=== PATIENT | male | born 1990 | race Caucasian/White ===

== ENCOUNTER 2023-06-05 12:17 | Outpatient (AMB) | payer BC, SELFPAY ==
--- NOTE | 2023-06-05 12:20 | A.OFFPC_ITS ---
Vital Signs 06/05/23 12:28 Height 5 ft 5 in Weight 154 lb 8 oz BMI 25.7 BP 100/62 Blood Pressure Location Lt brachial Position Sitting Pulse 51 Pulse Source Pulse Oximeter Pulse Oximetry (%) 98 Oxygen Delivery Method Room Air Intake Visit Reasons: LAST PULLER/ Liver/Breathing Intake Note: Patient is a new patient here to establish care for Depression, Anxiety, ADHD . Transferring care from unknown. Medical records have not been requested and have not received. Learn To Swim Instructor Required: No Director Of Pediatric Rehabilitation: Not Required per policy Accompanied by: Self / Same As Patient Allergies No Known Allergies Allergy (Verified 06/05/23 12:33) Medication List - Last Reconciled 06/05/23 by WINTER Jones- No Known Home Meds Tobacco use date assessed: 06/05/23 Dental Screening Dental Screen Date: 06/05/23 Did you have a dental visit in the last 12 months?: No Did you have a dental problem in the last 6 months where you did not have access to dental care?: No Was dental information given to patient?: No HPI HPI Comments History of Present Illness Details 32 y/o M MDD, ADHD, polysubstance abuse, Hep C s/p Mounika Reports he was put up for adoption 1993. He was adopted by a nice family in [facility]. His mom is a retired nurse. He comes to me today with no records. He reports Recent PCP 6-7 years ago at [facility] Was living in [place] for the last 2-3 years. Limited medical care Was in detox rehab heroin/cocaine Clean September 19 2017 from heroin; but then quickly started using cocaine. smoking cocaine last use a few months ago. Was on MAT w/ subaxone for 3 years. Hospital stays: [facility] 2017 for overdose Admitted x3 for overdose In out of detox and rehab several times Here today looking to get caught up on his health care. Would like Echo to check his heart w/ Cocaine use Wants meds from ADHD if able. Was Adderall in the past. Mentions perhaps Strattera when he was a child but unsure. Again no records. He reports that he awoke get me some records to review. Admits depressive symptoms he does see a counselor once a week, described as more as a drop in somewhere in [place]. Admits that he would benefit from therapy on a more consistent basis. [facility] Medical History Palpitation Liver disease Anxiety and depression ADHD History of drug dependence/abuse Surgical History No pertinent past surgical history Family History Mother Mental health disorder High blood pressure High cholesterol Alcoholism Father Substance use disorder High blood pressure High cholesterol Alcoholism Social History Housing: Other (fpc ) Alcohol intake: former Patient Tobacco Use Status: Never used Tobacco Tobacco use type: Smokeless Tobacco (nicotine patches) e-Cigarette/Vaping Use: Currently Using (mariarjuna) Second Hand Smoke Exposure: Yes Substance Use Type: Marijuana service: No Current occupational status: employed 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 1. Little interest or pleasure in doing things: more than half the days 2. Feeling down, depressed, or hopeless: more than half the days 3. Trouble falling or staying asleep, or sleeping too much: not at all 4. Feeling tired or having little energy: several days 5. Poor appetite or overeating: several days 6. Feeling bad about yourself - or that you are a failure or have let yourself or your family down: several days 7. Trouble concentrating on things, such as reading the newspaper or watching television: several days (trouble concentrating ) 8. Moving or speaking so slowly that other people could have noticed. Or the opposite - being so fidgety or restless that you have been moving around a lot more than usual: not at all 9. Thoughts that you would be better off or of hurting yourself in some way: not at all Total score: 8 Depression Screening Interpretation: Positive Depression Screening Follow-up: Existing condition Depression Screening Done: Yes 27451 - PHQ-9 Billing: Yes Source: Developed by Alesha Cruz Kareem, Froilan Hardin and colleagues, with an educational joyce from [employer]. Thrive Questionnaire Date Thrive assessed: 06/05/23 I am a: Patient What is your living situation today?: I have a place to live, but I am worried about losing it in the future Within the past 12 months, did the food you bought not last and you didn't have the money to get more?: Never true Within the past 12 months, did you worry whether your food would run out before you got money to buy more?: Never true Do you have trouble paying for medicines?: No Do you have trouble getting transportation to medical appointments?: No Do you have trouble paying your heating and electricity bill?: No Do you have trouble taking care of your child, family member or friend?: No Do you have trouble with day-to-day activities such as bathing, preparing meals, shopping, managing finances, etc.?: No Are you currently unemployed and looking for a job?: No Are you interested in more education?: No Please select the resources that you would like help with: None Currently or been in a relationship where the following occur: no concerns reported THRIVE Score: 1 AUDIT C Alcohol Use Questionnaire (AUDIT-C) 1. How often do you have a drink containing alcohol?: Never 2. How many drinks containing alcohol do you have on a typical day when you are drinking?: 1 or 2 3. How often do you have six or more drinks on one occasion?: Never Total Score: 0 Score Reviewed/Action Taken: Yes KRISTOFER-7 AMB Questionnaire KRISTOFER-7 Date KRISTOFER - 7 assessed: 06/05/23 Feeling nervous, anxious, or on edge: 3 = Nearly every day Not being able to stop or control worryin = Nearly every day Worrying too much about different things: 3 = Nearly every day Trouble relaxin = Nearly every day Being so restless that it is hard to sit still: 3 = Nearly every day Becoming easily annoyed or irritable: 3 = Nearly every day Feeling afraid as if something awful might happen: 3 = Nearly every day Total KRISTOFER-7 score (0-4 normal; 5-9 mild; 10-14 moderate; 15-21 severe): 21 Source: Developed by Drs. Eros L. KristinAlesha sanchez, Froilan Hardin and colleagues, with an educational joyce from [employer]. KRISTOFER-7 Assessment Billing KRISTOFER-7 Assessment Tool: KRISTOFER-7 Assessment 84263 Review of Systems Const All systems reviewed & are unremarkable except as noted in HPI and below Physical exam (Primary Care) Vital Signs: Last Vital Signs Pulse 51 06/05/23 12:28 BP 100/62 06/05/23 12:28 Pulse Ox 98 06/05/23 12:28 Oxygen Delivery Method Room Air 06/05/23 12:28 BMI result Body Mass Index 25.7 Tobacco/Smoking Status: Tobacco use Status Tobacco use date assessed 06/05/23 06/05/23 12:51 Patient Tobacco Use Status Never used Tobacco 06/05/23 12:51 Tobacco use type Smokeless Tobacco (nicotine 06/05/23 12:51 patches) e-Cigarette/Vaping Use Currently Using (mariarjuna) 06/05/23 12:51 PHQ-9: PHQ-9 Score PHQ-9: Total score 8 06/05/23 13:33 Depression Screening Interpretation: Positive Depression Screening Follow-up: Ex isting condition Thrive Assessment: Date of Thrive Assessment Date Thrive assessed 06/05/23 06/05/23 12:51 Currently or been in a relationship where the following occur: no concerns reported Const Other: Awake alert oriented no acute distress PERRLA, sclera nonicteric Mucous membranes moist Regular rate and rhythm Lung sounds with coarse inspiratory expiratory rhonchi bilat Mood and affect appropriate Office Procedures Flu Questionnaire Does the patient have a severe egg allergy?: No Does the patient have severe life threatening allergies?: No Does the patient have a fever or illness today?: No Has the patient ever had Guillain-Tiger Syndrome?: No Has the patient ever had any past reaction to a flu shot?: No Immunizations flu vacc [id number] 6mos up(PF) 60 mcg(15 mcgx4)/0.5 mL IM syringe Performing Provider: CRISTOBAL Jones Performing Location: [facility] Administered by: Fiona Metzger CMA on 06/05/23 13:33 Dose Route Admin Location Dispensed Lot Number Expiration Date NDC [facility] Of Hospital Medicine 0.5 mL IM Left Deltoid 0.5 mL [id number] 10/18/23 30984-937-73 [employer] VIS Given Date VIS Provided VIS Publication Date 06/05/23 Single Vaccine 20 Eligibility Eligibility Date Funding Source Not [facility] [facility] Eligible 06/05/23 Private Assessment and Plan Assessment & Plan (1) History of intravenous drug abuse: Comment: No IV drug use since September 2017 after his last overdose. Was treated with Suboxone at this time. Currently not on any MAT. We will order an echocardiogram Code(s): Z87.898 - Personal history of other specified conditions (2) Cocaine use disorder: Comment: Smokes cocaine. Last use a few months ago. Abnormal lung sounds today. We will check PFTs and bring him back to follow up on these results Code(s): F14.10 - Cocaine abuse, uncomplicated (3) KRISTOFER (generalized anxiety disorder): Comment: Not currently on medication. I have referred him to the nurse navigator to help him establish care with a trauma and forearm therapist. Time spent reviewing this in the trauma associated with adoption. Code(s): F41.1 - Generalized anxiety disorder (4) MDD (major depressive disorder): Comment: Not currently on medication. I have referred him to the nurse navigator to help him establish care with a trauma and forearm therapist. Time spent reviewing this in the trauma associated with adoption. Likely will benefit from some medication we will check some labs 1st and bring him back to follow-up and discuss this Code(s): F32.9 - Major depressive disorder, single episode, unspecified Qualifiers: Major depression recurrence: recurrent Active/Remission status: currently active Major depression episode severity: moderate Qualified Code(s): F33.1 - Major depressive disorder, recurrent, moderate (5) ADHD: Comment: Was on Adderall in the past. Discussed the use of stimulants in the setting of polysubstance abuse. Strongly advised against this. We will check some labs and bring him back to discuss further treatment. He was made aware that there are other treatment alternatives that are not stimulants. Code(s): F90.9 - Attention-deficit hyperactivity disorder, unspecified type Qualifiers: Attention deficit-hyperactivity disorder type: combined inattentive- hyperactive Qualified Code(s): F90.2 - Attention-deficit hyperactivity disorder, combined type Plan Total time spent caring for the patient today was 60 minutes. This includes time spent before the visit reviewing the chart, time spent during the visit, and time spent after the visit on documentation This note is constructed using voice recognition software. While every effort has been made to ensure accuracy in automation application engineer, still errors may have been included Sometimes, these errors may affect the content or meaning of the given sentence . Orders: Orders CA echo transthorac w con Today TSH reflex Free T4 Today F14.10 - Cocaine abuse, uncomplicated, F32.9 - Major depressive disorder, single episode, unspecified, F41.1 - Generalized anxiety disorder, F90.9 - Attention-deficit hyperactivity disorder, unspecified type, Z87.898 - Personal history of other specified conditions HIV Ab/Ag Today F14.10 - Cocaine abuse, uncomplicated, F32.9 - Major depressive disorder, single episode, unspecified, F41.1 - Generalized anxiety disorder, F90.9 - Attention-deficit hyperactivity disorder, unspecified type, Z87.898 - Personal history of other specified conditions Syphilis Screen Today F14.10 - Cocaine abuse, uncomplicated, F32.9 - Major depressive disorder, single episode, unspecified, F41.1 - Generalized anxiety disorder, F90.9 - Attention-deficit hyperactivity disorder, unspecified type, Z87.898 - Personal history of other specified conditions PFT pulmonary function test Today F14.10 - Cocaine abuse, uncomplicated, F32.9 - Major depressive disorder, single episode, unspecified, F41.1 - Generalized anxiety disorder, F90.9 - Attention-deficit hyperactivity disorder, unspecified type, Z87.898 - Personal history of other specified conditions Influenza [id number] Immunization Today Z23 - Encounter for immunization Comprehensive Met. Panel Today F14.10 - Cocaine abuse, uncomplicated, F32.9 - Major depressive disorder, single episode, unspecified, F41.1 - Generalized anxiety disorder, F90.9 - Attention-deficit hyperactivity disorder, unspecified type, Z87.898 - Personal history of other specified conditions Microalbumin, Random (w Creat) Today F14.10 - Cocaine abuse, uncomplicated, F32.9 - Major depressive disorder, single episode, unspecified, F41.1 - Generalized anxiety disorder, F90.9 - Attention-deficit hyperactivity disorder, unspecified type, Z87.898 - Personal history of other specified conditions Herpes Simplex Virus Ab IgG Today F14.10 - Cocaine abuse, uncomplicated, F32.9 - Major depressive disorder, single episode, unspecified, F41.1 - Generalized anxiety disorder, F90.9 - Attention-deficit hyperactivity disorder, unspecified type, Z87.898 - Personal history of other specified conditions Hepatitis A,B,C Profile Today F14.10 - Cocaine abuse, uncomplicated, F32.9 - Major depressive disorder, single episode, unspecified, F41.1 - Generalized anxiety disorder, F90.9 - Attention-deficit hyperactivity disorder, unspecified type, Z87.898 - Personal history of other specified conditions Referrals Nurse Navigator Referral F32.9 - Major depressive disorder, single episode, unspecified, F41.1 - Generalized anxiety disorder, Z87.898 - Personal history of other specified conditions Coding Level of Care Code New Pt Level 5 (35315) Diagnoses History of intravenous drug abuse Z87.898 Cocaine use disorder F14.10 KRISTOFER (generalized anxiety disorder) F41.1 Moderate episode of recurrent major depressive disorder F33.1 Major depression recurrence: recurrent Active/Remission status: currently active Major depression episode severity: moderate Attention deficit hyperactivity disorder (ADHD), combined type F90.2 Attention deficit-hyperactivity disorder type: combined inattentive- hyperactive Additional Codes KRISTOFER-7 Assessment Billing - KRISTOFER-7 Assessment Tool: KRISTOFER-7 Assessment 33516 ([id number])
[2023-06-05 12:28] VITALS: BP 100/62; PULSE 51; O2SAT 98; BMI 25.7
== END 2023-06-05 14:21 | disposition home or self-care (01) ==
PROVIDERS: PCP Nurse Practitioner Family; Visit Provider Nurse Practitioner Family
DX: F33.1 Major depressive disorder, recurrent, moderate (principal); F14.10 Cocaine abuse, uncomplicated; F90.2 Attention-deficit hyperactivity disorder, combined type; Z23 Encounter for immunization; Z87.898 Personal history of other specified conditions; F41.1 Generalized anxiety disorder
CPT/HCPCS: 90471; 90686; 96127; 99205

== ENCOUNTER → 2023-07-03 08:40 | Outpatient (REF) | payer BC, SELFPAY ==
--- NOTE | 2023-07-03 08:54 | CA_ITS ---
Transthoracic Echocardiogram Patient (Last, First, Middle): Jaya Carrillo, Gender: Male Date of : 1990 Age: 32 Procedure Date: 07/03/2023 Procedure Type: Transthoracic Echocardiogram Location: OP Height: 165.1 cm Weight: 65.77 kg BSA: 1.73 m2 Heart Rate: 51 bpm BP: 110 / 70 mmHg Farm Appraiser: TO Referring MD: Zoë Massey [facility]- Forensic Pathologist: Christiano Lazcano MD Symptoms: Z87.898 - Personal history of other specified conditions Study Quality: Good ECG Rhythm: Bradycardia Conclusions: - Normal study Findings Left Ventricle Normal left ventricular size, thickness, and systolic function. The visually estimated ejection fraction is between 60-65 Peak GLS is -19.8%, within normal limits. Right Ventricle Normal right ventricular cavity size and systolic function. Atria Both atria are normal in size. There is no evidence of interatrial shunt. Aortic Valve Normal aortic valve structure and function. There is no aortic valve stenosis. There is no aortic valve regurgitation. Mitral Valve Normal mitral valve structure and function. There is no mitral valve regurgitation. There is no mitral valve stenosis. Pulmonic Valve The pulmonic valve is normal. Tricuspid Valve Normal tricuspid valve structure. There is trace tricuspid valve regurgitation. The right ventricular systolic pressure is normal. The right ventricular systolic pressure is 20 mmHg. Normal right atrial pressure. There is no evidence of pulmonary hypertension. Great Vessels All visible segments of the aorta are normal in size. The visualized portions of the pulmonary artery and branches are normal. Venous The inferior vena cava is normal in size and collapses greater than 50% with inspiration. Pericardium/Pleural There is no evidence of pericardial effusion. Prior Study Comparison No prior study available for comparison. Measurements 2D Linear Measurements IVSd: 0.98 0.6-0.9/0.6-1.0 cm LVIDd: 4.89 3.9-5.3/4.2-5.9 cm LVIDd Index: 2.83 2.4-3.2/2.2-3.1 cm/m2 LVIDs: 3.04 2.0-3.6 cm LVPWd: 0.98 0.7-1.1 cm LA Diam: 3.50 2.7-3.8/3.0-4.0 cm LAIDs Index: 2.02 1.5-2.3 cm/m2 LV Mass: 212.38 67-162/88-224 g LV Mass Index: 122.76 43-95/49-115 g/m2 LVOT Diam: 2.10 3.0+(-)1.3 cm 2D Systolic Function EF 4C: 64.60 >55% EF 2C: 59.90 >55% EF BiP: 61.00 >55% Mitral Valve MV Pk E: 0.68 MV PK A: 0.25 MV Decel Time: 251.00 E/A: 2.70 E'Lateral: 15.00 E'Medial: 11.40 E/E' Med: 6.00 E/E' Lat: 4.50 PHT: 74.00 MVA PHT: 2.97 Decel [place]: 2.71 Aortic Valve AoV Pk Sergio: 1.03 AoV Mn Sergio: 0.83 AoV VTI: 0.29 AoV Pk Grad: 4.00 Aov Mn Grad: 3.00 KORY Cont.VTI: 2.53 LVOT LVOT Pk Sergio: 0.80 LVOT Mn Sergio: 0.52 LVOT VTI: 0.21 LVOT Pk Grad: 3.00 LVOT Mn Grad: 1.00 LVOT Diam: 2.10 LVOT Area: 3.46 Diastolic Function MV Pk E: 0.68 MV Pk A: 0.25 E/A: 2.70 E'Medial: 11.40 E/E' Med: 6.00 E' Laterial: 15.00 E/E' Lat: 4.50 Right Ventricle TAPSE (mm): 24.90 TVS' Sergio: 11.70 Tricuspid Valve TR Pk Sergio: 1.74 TR Pk Grad: 12.00 RA Press: 8.00 RVSP: 20.00 Great Vessels Aorta Sinus of Valsalva: 3.00 2.0-3.5 cm Ao Asc: 2.80 2.1-3.4 cm Updated in Other Vendor System with Status of Final Christiano Lazcano MD electronically signed on 07/03/2023 4:56:57 PM with status of Final
== END ==
LOC: HO.CARD 08:40
PROVIDERS: PCP Nurse Practitioner Family; Visit Provider Nurse Practitioner Family
DX: F14.10 Cocaine abuse, uncomplicated (principal); Z87.898 Personal history of other specified conditions
CPT/HCPCS: 93306; 93356

== ENCOUNTER → 2023-07-03 08:54 | Outpatient (BNV) | payer BC, SELFPAY | PROVIDERS: PCP Nurse Practitioner Family; Visit Provider Internal Medicine Cardiovascular Disease | DX: R00.1 Bradycardia, unspecified (principal) | CPT/HCPCS: 93306 ==

== ENCOUNTER 2023-09-21 08:54 | Outpatient (AMB) | payer BC, SELFPAY ==
--- NOTE | 2023-09-21 08:57 | A.OFFVIS_ITS ---
Vital Signs 09/21/23 08:59 Height 5 ft 5 in Weight 149 lb 2 oz BMI 24.8 BP 128/64 Blood Pressure Location Rt brachial Position Sitting Respiration 14 Pulse 62 Pulse Source Pulse Oximeter Temp 97.9 F Intake Visit Reasons: Discuss next steps and mental health referral Intake Note: F/U on mental health referral. Allergies No Known Allergies Allergy (Verified 09/21/23 09:16) Medication List - Last Reconciled 09/21/23 by CRISTOBAL Jones No Known Home Meds HPI Comments Details: 32 y/o M MDD, ADHD, polysubstance abuse, Hep C s/p Mounika Reports he was put up for adoption 1993. He was adopted by a nice family in [facility]. His mom is a retired nurse. Hospital stays: [facility] 2017 for overdose Admitted x3 for overdose In out of detox and rehab several times Here today to routine f/u Interested in getting ADHD meds; was on adderral and straterra in the past; need to avoid stims and other addictive meds given hx. Prior to start needs labs done ordered at last visit but not done Will get labs done today Active w/ therapist at [facility]'s office > did not f/u on NN referral. No interest Denies any use of cocaine since last visit No etoh - 12 months No smoking - 8 months 06/2023 echo WNL - reviewed w/ him today PFTs ordered but not complete- would need to get done at outside facility. Does not wish to f/u on this at this time, feels his breathing is fine insomnia, sleep maintenance, falls asleep fine, wakes at 0500 QD. Wonders about melatonin or OTC sleep aide Plan: Start Wellbutrin XL 150mg po QD - goal to treat KRISTOFER/MDD and ADHD w/one medication and avoid polypharm w him Start traz 25-50mg po QHS PRN - to help w/insomnia and mood; if in effective could increase to switch to visatril. RTO 6 weeks to fu on medications & effect. Sooner as needed PFSH Medical History (Updated 09/21/23 @ 12:46 by CRISTOBAL Jones) Palpitation Liver disease Anxiety and depression ADHD History of drug dependence/abuse Surgical History No pertinent past surgical history Family History Mother Mental health disorder High blood pressure High cholesterol Alcoholism Father Substance use disorder High blood pressure High cholesterol Alcoholism Social History Housing: Other (fpc ) Alcohol intake: former Patient Tobacco Use Status: Never used Tobacco Tobacco use type: Smokeless Tobacco (nicotine patches) e-Cigarette/Vaping Use: Currently Using (mariarjuna) Second Hand Smoke Exposure: Yes Substance Use Type: Marijuana service: No Current occupational status: employed 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 Cognitive needs: No Hearing needs: No Vision needs: No Review of Systems Const All systems reviewed & are unremarkable except as noted in HPI and below Physical Exam Vital Signs: Last Vital Signs Temp 97.9 F 09/21/23 08:59 Pulse 62 09/21/23 08:59 Resp 14 09/21/23 08:59 BP 128/64 09/21/23 08:59 BMI result Body Mass Index 24.8 Const Other: awake alert NAD scleras nonicteric bilat RRR LS with ins/exp wheezes BLL cleared w/ deep breaths, otherwise clear throughout Mood and affect appropriate Assessment & Plan Assessment & Plan (1) MDD (major depressive disorder): Comment: Not currently on medication. Active w/ counselor for 's Dept - declines NN referral at this time Start wellbutrin XL 150mg po QD Code(s): F32.9 - Major depressive disorder, single episode, unspecified Category: Medical Qualifiers: Active/Remission status: currently active Major depression episode severity: moderate Major depression recurrence: recurrent Qualified Code(s): F33.1 - Major depressive disorder, recurrent, moderate (2) KRISTOFER (generalized anxiety disorder): Comment: see MDD Code(s): F41.1 - Generalized anxiety disorder Category: Medical (3) ADHD: Comment: Was on Adderall in the past. Discussed the use of stimulants in the setting of polysubstance abuse. Strongly advised against this. Start wellbutrin xl 150mg po Qd Code(s): F90.9 - Attention-deficit hyperactivity disorder, unspecified type Category: Medical Qualifiers: Attention deficit-hyperactivity disorder type: combined inattentive- hyperactive Qualified Code(s): F90.2 - Attention-deficit hyperactivity disorder, combined type (4) Mood insomnia: Comment: start traz 25-50mg po QHS PRN Code(s): F51.05 - Insomnia due to other mental disorder; F39 - Unspecified mood [affective] disorder Category: Medical (5) History of drug dependence/abuse: Comment: in remission, not on MAT Code(s): F19.21 - Other psychoactive substance dependence, in remission Category: Medical Plan This note is constructed using voice recognition software. While every effort has been made to ensure accuracy in municipal services manager, still errors may have been included Sometimes, these errors may affect the content or meaning of the given sentence . Total time spent caring for the patient today was 50 minutes. This includes time spent before the visit reviewing the chart, time spent during the visit, and time spent after the visit on documentation Medications: New trazodone 1/2 to 1 tab needed insomnia 50 mg PO BEDTIME PRN 30 tabs 1RF sleep bupropion HCl XL (Wellbutrin XL) 150 mg PO QAM 30 tabs 1RF Patient Instructions: get labs done today --> labs done and normal CMP, TSH RTO in 6 weeks to fu on medications Coding Level of Care Code Est Pt Level 5 (63055) Diagnoses Moderate episode of recurrent major depressive disorder F33.1 Active/Remission status: currently active Major depression episode severity: moderate Major depression recurrence: recurrent KRISTOFER (generalized anxiety disorder) F41.1 Attention deficit hyperactivity disorder (ADHD), combined type F90.2 Attention deficit-hyperactivity disorder type: combined inattentive- hyperactive Mood insomnia F51.05; F39 History of drug dependence/abuse F19.21
[2023-09-21 08:59] VITALS: BP 128/64; PULSE 62; RESP 14; TEMP 36.6; BMI 24.8
== END 2023-09-21 10:49 | disposition home or self-care (01) ==
PROVIDERS: PCP Nurse Practitioner Family; Visit Provider Nurse Practitioner Family
DX: F33.1 Major depressive disorder, recurrent, moderate (principal); F39 Unspecified mood [affective] disorder; F19.21 Other psychoactive substance dependence, in remission; F41.1 Generalized anxiety disorder; F90.2 Attention-deficit hyperactivity disorder, combined type; F51.05 Insomnia due to other mental disorder
CPT/HCPCS: 99215

== ENCOUNTER 2023-09-21 09:36 | Outpatient (REF) | payer BC, SELFPAY ==
[2023-09-21 12:17] LABS: Alanine Aminotransferase 14 U/L (0-40); Albumin Level 4.6 g/dL (3.5-5.0); Alkaline Phosphatase 70 U/L (39-117); Anion Gap 11 (12-20); Aspartate Amino Transferase 19 U/L (5-37); Bilirubin Total 0.5 mg/dL (0.0-1.0); Blood Urea Nitrogen 17 mg/dL (9-16); Calcium 9.9 mg/dL (8.4-10.2); Carbon Dioxide 27 mmol/L (22-29); Chloride 106 mmol/L (96-108); Estimated Glomerular Filt Rate > 60; Glucose Random 94 mg/dL (60-115); Potassium 4.2 mmol/L (3.3-5.1); Sodium 140 mmol/L (135-145); Total Protein 7.4 g/dL (6.5-8.0)
[2023-09-21 12:20] LABS: Creatinine Urine 89.28 mg/dL; Microalbumin Urine < 5.0 mg/L
[2023-09-21 12:39] LABS: TSH reflex Free T4 0.41 uIU/mL (0.32-4.0)
[2023-09-22 05:05] LABS: Syphilis Screen Nonreactive (Nonreactive)
[2023-09-22 05:44] LABS: HBc Num1 0.06 S/CO (0.00-0.79); HBsAGNum1 0.33 S/CO (0.00-0.99); HIV AB/AG Nonreactive (Nonreactive); HIV Num 1 0.06 S/CO (0.00-0.99); Hepatitis A Antibody IgM 0.15 Index (0-0.79); Hepatitis B Core Antibody Nonreactive (Nonreactive); Hepatitis B Surface Antigen Negative (Negative); ~HepC Num1 5.65 S/CO (0.00-0.79); ~Hepatitis A Antibody IgM Nonreactive (Nonreactive); ~Hepatitis B Surface Antibody REACTIVE (Nonreactive); ~Hepatitis C Antibody Reactive (Nonreactive)
[2023-09-23 12:03] LABS: Herpes Simplex Type 1 IgG 7.29 index; Herpes Simplex Type 2 IgG <0.90 index
== END 2023-09-21 09:37 | disposition home or self-care (01) ==
LOC: HO.WFDLDS 09:36
PROVIDERS: Visit Provider Nurse Practitioner Family
DX: F32.9 Major depressive disorder, single episode, unspecified (principal); F41.1 Generalized anxiety disorder; F90.9 Attention-deficit hyperactivity disorder, unspecified type; F14.10 Cocaine abuse, uncomplicated; Z87.898 Personal history of other specified conditions
CPT/HCPCS: 36415; 80053; 82043; 82570; 84443; 86695; 86696; 86704; 86706; 86709; 86780; 86803; 87340; 87389

== ENCOUNTER 2024-09-23 09:16 | Outpatient (AMB) | payer BC, SELFPAY ==
--- NOTE | 2024-09-23 09:22 | A.OFFPC_ITS ---
Vital Signs 09/23/24 09:24 Height 5 ft 4 in Weight 152 lb 6 oz BMI 26.2 BP 126/82 Blood Pressure Location Rt brachial Position Sitting Respiration 12 Pulse 72 Pulse Source Pulse Oximeter Pulse Oximetry (%) 98 Oxygen Delivery Method Room Air Intake Visit Reasons: Hernia Intake Note: Umbilical hernia. Has had for almost a year. Requesting a mental health referral. Orthotic Fitter Required: No Allergies No Known Allergies Allergy (Verified 09/23/24 10:04) Medication List - Last Reconciled 09/23/24 by AALIYAH Jones No Known Home Meds Tobacco use date assessed: 09/23/24 Dental Screening Dental Screen Date: 09/23/24 Did you have a dental visit in the last 12 months?: Yes Did you have a dental problem in the last 6 months where you did not have access to dental care?: No Was dental information given to patient?: Patient has dentist HPI HPI Comments History of Present Illness Details 33 y/o M MDD, ADHD, polysubstance abuse, Hep C s/p Jamesstephanie Reports he was put up for adoption 1993. He was adopted by a [employer] family in [facility]. His mom is a retired nurse. Hospital stays: Susanna T[facility] 2017 for overdose Admitted x3 for overdose In out of detox and rehab several times History of Present Illness - The patient is a 33 year old male pres enting with an umbilical hernia. - Reports a protrusion at the navel, wor sening over time. - Expresses anxiety, desires mental heal th referral. - History of substance use, sober from a lcohol and opiates. - Attempts cannabis cessation. - Supports include AA participation. - Cites relationship stressors. - Past referrals for mental health not f dhara. - Advised by his mother to seek care. Review of Systems - Gastrointestinal: Reports umbilical he rnia. - Psychiatric: Reports anxiety, has not followed through on past mental health referrals. - Substance Use: Reports history of alco hol and opiate use, currently abstainin g. Reports current cannabis use. Physical Exam General: Well developed, well nourished, in no acute distress. Appears stated age. Head: Normocephalic, atraumatic. Eyes: Pupils are equal, round and reactive to light and accommodation. Conjunctivae are clear. Vision grossly normal. Lungs: Clear to auscultation bilaterally. No rales, rhonchi or wheeze noted. Good air flow in all sawant. Heart: Regular rate and rhythm. No murmurs, click, rubs or gallops are noted. Abdomen: Bowel sounds present in all quadrants. The abdomen is soft, nontender, with no masses or organomegaly noted. Umbilical hernia is present. Musculoskeletal: Joints are nontender, without swelling, redness, or effusions. Pulses: Peripheral pulses are equal and palpable bilaterally. Extremities: No clubbing, cyanosis nor edema is noted. Psych: Mood and affect appropriate. Patient requests a mental health referral and reports feeling some anxiety. Discussion Notes I discussed with the patient the management options for his umbilical hernia, including corrective surgery. I mentioned the potential risks of waiting, such as incarceration or strangulation of the hernia, and the likely use of surgical mesh to prevent recurrence. Regarding mental health, I emphasized the importance of follow-through on referrals for better management of his anxiety and addressed his desire for professional support. I assured him that he would be contacted by the navigation team for assistance with services. I provided resources and hotlines for immediate support in case of acute anxiety or distress. Follow-up with general surgery for the hernia and mental health referral process was outlined as the next steps. Assessment and Plan 1. Umbilical Hernia - Surgical correction advised. - Risk of incarceration explained. 2. Anxiety and Mental Health Referral - Referral emphasized. - Mental health resources provided. 3. History of Substance Use Disorder - Sobriety maintained. - Support from AA continued. 4. Current Cannabis Use - Cessation support discussed. Patient Instructions - Keep the hernia in mind and avoid acti vities that cause strain on your abdomen. - Expect a call from navigation services regarding mental health referral. - If contacted, ensure follow-up with [facility] health provider. - Reach out to hotlines if experiencing acute anxiety or emotional distress. - Continue attending AA meetings for sup port. - Try to decrease cannabis use gradually . RTO PRN Consent Patient was informed and verbally consented to the use of an ambient scribe for clinic note documentation during this visit. Total time spent caring for the patient today was 30 minutes. This includes time spent before the visit reviewing the chart, time spent during the visit, and time spent after the visit on documentation, reviewing laboratory results, diagnostic imaging, medications, performing a medically necessary evaluation, counseling on diagnoses, care coordination, ordering appropriate tests, ordering appropriate medications, review of tests performed by other providers, reporting test results with the patient, communication with other healthcare providers. [facility] Medical History (Updated 09/23/24 @ 10:15 [facility] ADHD Anxiety and depression History of drug dependence/abuse Liver disease Palpitation Surgical History No pertinent past surgical history Family History Mother Mental health disorder High blood pressure High cholesterol Alcoholism Father Substance use disorder High blood pressure High cholesterol Alcoholism Social History (Updated 09/23/24 @ 09:30 by Tatianna Mckinnon CMA) Housing: Other (group home ) Alcohol intake: former Comment: quit 2 years ago Patient Tobacco Use Status: Never used Tobacco Tobacco use type: Smokeless Tobacco (nicotine patches) e-Cigarette/Vaping Use: Currently Using (mariarjuna) Second Hand Smoke Exposure: Yes Use of substances other than those prescribed or required for medical reasons: Yes Substance Use Type: Marijuana service: No Current occupational status: employed 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 1. Little interest or pleasure in doing things: not at all 2. Feeling down, depressed, or hopeless: more than half the days 3. Trouble falling or staying asleep, or sleeping too much: not at all 4. Feeling tired or having little energy: several days 5. Poor appetite or overeating: several days 6. Feeling bad about yourself - or that you are a failure or have let yourself or your family down: not at all 7. Trouble concentrating on things, such as reading the newspaper or watching television: several days 8. Moving or speaking so slowly that other people could have noticed. Or the opposite - being so fidgety or restless that you have been moving around a lot more than usual: not at all 9. Thoughts that you would be better off or of hurting yourself in some wa y: not at all Total score: 5 Depression Screening Interpretation: Positive Depression Screening Follow-up: Existing condition and Community Mental Health Worker F/U Depression Screening Done: Yes 47074 - PHQ-9 Billing: Yes Source: Developed by Drs. Eros [place], Alesha Serna, Froilan Hardin and colleagues, with an educational joyce from [employer]. Thrive Questionnaire Date Thrive assessed: 09/23/24 I am a: Patient What is your living situation today?: I have a steady place to live Within the past 12 months, did the food you bought not last and you didn't have the money to get more?: Never true Within the past 12 months, did you worry whether your food would run out before you got money to buy more?: Never true Do you have trouble paying for medicines?: No Do you have trouble getting transportation to medical appointments?: No Do you have trouble paying your heating and electricity bill?: No Do you have trouble taking care of your child, family member or friend?: No Do you have trouble with day-to-day activities such as bathing, preparing meals, shopping, managing finances, etc.?: No Are you currently unemployed and looking for a job?: No Are you interested in more education?: Yes Please select the resources that you would like help with: None Currently or been in a relationship where the following occur: No concerns reported THRIVE Score: 0 AUDIT C Alcohol Use Questionnaire (AUDIT-C) 1. How often do you have a drink containing alcohol?: Never 3. How often do you have six or more drinks on one occasion?: Never Total Score: 0 Score Reviewed/Action Taken: Yes KRISTOFER-7 AMB Questionnaire KRISTOFER-7 Date KRISTOFER - 7 assessed: 09/23/24 Feeling nervous, anxious, or on edge: 1 = Several days Not being able to stop or control worryin = More than half the days Worrying too much about different things: 2 = More than half the days Trouble relaxin = More than half the days Being so restless that it is hard to sit still: 2 = More than half the days Becoming easily annoyed or irritable: 2 = More than half the days Feeling afraid as if something awful might happen: 1 = Several days Total KRISTOFER-7 score (0-4 normal; 5-9 mild; 10-14 moderate; 15-21 severe): 12 Source: Developed by Alesha Cruz Kareem, Froilan Hardin and colleagues, with an educational joyce from [employer]. KRISTOFER-7 Assessment Billing KRISTOFER-7 Assessment Tool: KRISTOFER-7 Assessment 28748 Physical exam (Primary Care) Vital Signs: Last Vital Signs Pulse 72 09/23/24 09:24 Resp 12 09/23/24 09:24 BP 126/82 09/23/24 09:24 Pulse Ox 98 09/23/24 09:24 Oxygen Delivery Method Room Air 09/23/24 09:24 BMI result Body Mass Index 26.2 Tobacco/Smoking Status: Tobacco use Status Tobacco use date assessed 09/23/24 09/23/24 09:24 Patient Tobacco Use Status Never used Tobacco 09/23/24 09:30 Tobacco use type Smokeless Tobacco (nicotine 09/23/24 09:30 patches) e-Cigarette/Vaping Use Currently Using (mariarjuna) 09/23/24 09:30 PHQ-9: PHQ-9 Score PHQ-9: Total score 5 09/23/24 09:29 Depression Screening Interpretation: Positive Depression Screening Follow-up: Existing condition and Community Mental Health Worker F/U Thrive Assessment: Date of Thrive Assessment Date Thrive assessed 09/23/24 09/23/24 09:29 Currently or been in a relationship where the following occur: No concerns reported Coding Level of Care Code Est Pt Level 4 (51191) Complex EM visit Add On G2211 Diagnoses Umbilical hernia without obstruction and without gangrene K42.9 Obstruction and gangrene presence: without obstruction or gangrene KRISTOFER (generalized anxiety disorder) F41.1 Moderate episode of recurrent major depressive disorder F33.1 Major depression recurrence: recurrent Active/Remission status: currently active Major depression episode severity: moderate History of drug dependence/abuse F19.21 History of intravenous drug abuse Z87.898 Additional Codes KRISTOFER-7 Assessment Billing - KRISTOFER-7 Assessment Tool: KRISTOFER-7 Assessment 45636 ([id number]) PHQ-9 - 44090 - PHQ-9 Billing: Yes ([id number]) Assessment & Plan Assessment & Plan (1) Umbilical hernia: Code(s): K42.9 - Umbilical hernia without obstruction or gangrene Category: Medical Qualifiers: Obstruction and gangrene presence: without obstruction or gangrene Qualified Code(s): K42.9 - Umbilical hernia without obstruction or gangrene (2) KRISTOFER (generalized anxiety disorder): Code(s): F41.1 - Generalized anxiety disorder Category: Medical (3) MDD (major depressive disorder): Code(s): F32.9 - Major depressive disorder, single episode, unspecified Category: Medical Qualifiers: Major depression recurrence: recurrent Active/Remission status: currently active Major depression episode severity: moderate Qualified Code(s): F33.1 - Major depressive disorder, recurrent, moderate (4) History of drug dependence/abuse: Comment: in remission, not on MAT Code(s): F19.21 - Other psychoactive substance dependence, in remission Category: Medical (5) History of intravenous drug abuse: Comment: No IV drug use since September 2017 after his last overdose. Was treated with Suboxone at this time. Currently not on any MAT. Code(s): Z87.898 - Personal history of other specified conditions Category: Social Hx Plan . Orders: Referrals General Surgery Referral K42.9 - Umbilical hernia without obstruction or gangrene Nurse Navigator Referral F33.1 - Major depressive disorder, recurrent, moderate, F41.1 - Generalized anxiety disorder Patient Instructions: National Suicide and Crisis Lifeline: Available 24 hours a day, 7 days a week, 365 days a year Dial 988 with any telephone to speak to someone immediately [address] [address] , [facility] (Mental / Behavioral health therapist: [address] [place] [address] [facility]: [address] [place] [address] Open from 10am - 12pm ([facility]) [facility] Crisis Services: [address] [place] [address] Walk in hours from 10am - 12pm Behavioral health Network: [address] [place] [id number] [place] [address] [phone] Thursday through Thursday 8am - 8pm Thursday and Thursday 9am - 5pm Crisis Hotlines Suicide prevention, domestic violence, and other crisis hotlines for youth, young adults, and their friends and families. National Runaway Safeline: The [place] Safeline helps youth who have run away, are thinking about running away, or who already ran away but are ready to come home. Parents and guardians can also contact the hotline if they are worried about their child running away or if their child has already left home. The hotline is available 24 hours a day, seven days a week. Youth, parents, and guardians can also use the online chat feature on the [facility]'s website to ask for help and get support, or [place] [address]. [facility] National Suicide Prevention Lifeline: The National Suicide Prevention Lifeline is a network of local crisis centers that are available 10/11 to provide support for youth and adults who are in any kind of emotional crisis. In addition to the main hotline number listed above, there are several other numbers to call depending on your needs: Prydeinig Language: Deaf and Hard of Hearin1-638.511.6964 Veterans: Disaster Distress: Anyone can also use their online chat feature on their website. [place] Suicide Prevention Lifeline [facility] Helpline: The [facility] Helpline is available to anyone in [place] who is need of emotional support. Anyone can call or text the helpline to receive help from specially trained volunteers. [place] high school and college students can also get online support through the IMHear_ program. For high school students, volunteers ages 15-18 are available Thursday- from 6-9PM. For college students, IMHear_ is available Thursday-Thursday from 5-9PM. The Mars Project - The Mars Project is a 10/11 crisis intervention and suicide prevention hotline for LGBTQ youth. Youth can also text Mars to for support, or use the online chat feature on the Mars Project's website. TrevorText is available Thursday-Thursday between 3-10PM. TrevorChat is available seven days a week between 3-10PM. SafeLink: SafeLink is for anyone who is being affected by domestic violence or dating violence. Volunteers at SafeLink speak Khmer and Prydeinig, and SafeLink also h as a service that can provide translation in more than 130 languages. TTY:
[2024-09-23 09:24] VITALS: BP 126/82; PULSE 72; RESP 12; O2SAT 98; BMI 26.2
== END 2024-09-23 10:13 | disposition home or self-care (01) ==
LOC: HO.HMCFM 09:17
PROVIDERS: PCP Nurse Practitioner Family; Visit Provider Nurse Practitioner Family
DX: K42.9 Umbilical hernia without obstruction or gangrene (principal); F41.1 Generalized anxiety disorder; F33.1 Major depressive disorder, recurrent, moderate; F19.21 Other psychoactive substance dependence, in remission; Z87.898 Personal history of other specified conditions

== ENCOUNTER → 2024-09-23 09:16 | Outpatient (BNVA) | payer BC, SELFPAY | PROVIDERS: PCP Nurse Practitioner Family; Visit Provider Nurse Practitioner Family | DX: F33.1 Major depressive disorder, recurrent, moderate (principal); F90.9 Attention-deficit hyperactivity disorder, unspecified type; K42.9 Umbilical hernia without obstruction or gangrene; F41.1 Generalized anxiety disorder; F19.21 Other psychoactive substance dependence, in remission; Z86.19 Personal history of other infectious and parasitic diseases; Z87.898 Personal history of other specified conditions | CPT/HCPCS: 96127 ==

== ENCOUNTER 2024-11-02 09:18 | Outpatient (AMB) | payer BC, SELFPAY ==
[2024-11-02 09:27] VITALS: BP 143/91; PULSE 96; BMI 26.8
--- NOTE | 2024-11-02 09:27 | MHC.OFFVIS ---
Vital Signs 11/02/24 09:27 Height 5 ft 4 in Weight 156 lb BMI 26.8 BP 143/91 H Blood Pressure Location Rt brachial Position Sitting Pulse 96 Intake Visit Reasons: Umbilical hernia Intake Note: Patient referred by pcp Zoë JOHNSONP for umbilical hernia. Present for 1yr. Patient c/o: on and off pain when pushing against stuff. Ophthalmic Asst Required: No Accompanied by: Self / Same As Patient Allergies No Known Allergies Allergy (Verified 11/02/24 09:33) Medication List - Last Reconciled 11/02/24 by Surya Azul MD No Known Home Meds HPI HPI Umbilical hernia: Details: 33-year-old male referred for an umbilical hernia. He says he has had this lump on his umbilicus for about a year now. He feels that this has been increasing in size. He describes some increasing discomfort as well. He denies any GI complaints. [facility] Medical History (Updated 11/02/24 @ 09:50 by Surya Azul MD) Umbilical hernia without obstruction or gangrene Palpitation Liver disease Anxiety and depression ADHD History of drug dependence/abuse Surgical History No pertinent past surgical history Family History Mother Mental health disorder High blood pressure High cholesterol Alcoholism Father Substance use disorder High blood pressure High cholesterol Alcoholism Social History Housing: Other ([facility] ) Alcohol intake: former Comment: quit 2 years ago Patient Tobacco Use Status: Never used Tobacco Tobacco use type: Smokeless Tobacco (nicotine patches) e-Cigarette/Vaping Use: Currently Using (mariarjuna) Second Hand Smoke Exposure: Yes Substance Use Type: Marijuana service: No Current occupational status: employed 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 Cognitive needs: No Hearing needs: No Vision needs: No Review of Systems Const Denies chills and Denies fever(s) Card Denies chest pain, Denies dyspnea and Denies dyspnea on exertion Resp Denies cough, Denies dyspnea and Denies dyspnea on exertion GI Denies hematochezia and Denies change in bowel habits Denies hematuria and Denies difficulty urinating Musc Denies back pain and Denies limited range of motion Neuro Denies focal weakness and Denies convulsions Psych Denies depression and Denies mood swings Physical Exam Vital Signs: Last Vital Signs Pulse 96 11/02/24 09:27 BP 143/91 H 11/02/24 09:27 BMI result Body Mass Index 26.8 Const General: comfortable and no acute distress Orientation/consciousness: patient oriented x3 Neck Neck: Yes no lymphadenopathy Resp Auscultation: clear to auscultation bilaterally Cardio Rhythm: regular rhythm GI Other: Umbilical hernia, about 2 cm, nontender, reducible Palpation (GI): Soft to palpation, nontender and no guarding Neuro General: patient oriented x3 Assessment & Plan Assessment & Plan (1) Umbilical hernia without obstruction or gangrene: Code(s): K42.9 - Umbilical hernia without obstruction or gangrene Category: Medical Plan: He has an umbilical hernia as described above. He wants to proceed with the repair I explained to him the technique of repair with possible mesh placement. I reviewed the risks including but not limited to bleeding, infections, bowel injury, recurrence, postop pain, as well as the benefits and alternatives. I explained to him what to expect postoperatively He says he understands and wants to proceed. Coding Level of Care Code New Pt Level 3 (86959) Diagnoses Umbilical hernia without obstruction or gangrene K42.9
== END 2024-11-02 09:48 | disposition home or self-care (01) ==
LOC: HO.HGS 09:19
PROVIDERS: PCP Nurse Practitioner Family; Visit Provider Surgery
DX: K42.9 Umbilical hernia without obstruction or gangrene (principal)
CPT/HCPCS: 99203

== ENCOUNTER 2024-11-10 06:13 | Day surgery (SDC) | payer BC, SELFPAY ==
[2024-11-08 08:33] VITALS: BMI 26.8
[2024-11-10] VITALS (8 sets, daily range): BP systolic 98–143; BP diastolic 53–93; PULSE 48–80; RESP 12–20; TEMP 36.5–37; O2SAT 98–100; BMI 26.9
[2024-11-10 07:19] LABS: Cannabinoid Screen Urine POSITIVE (Not Detect)
[2024-11-10] MEDS: Lactated Ringers 1,000 ML 100 ML IVCONT (07:22)
--- NOTE | 2024-11-10 08:18 | MHC.SHP ---
Pre-Procedural Eval Section A - 24 Hr Update-Section A only Date of Service: 11/10/24 The patient is an INPATIENT: No Changes since office visit: No Cold of Flu in the past 2 weeks, No New Medical Problems, No Changes in Medication and No Patient answered all questions The patient has been examined within 24 hours of the surgical procedure. The History & Physical has been completed within 30 days and I have reviewed it.: Yes Section B - Complete if H&P > 30 days Chief Complaint: Umbilical hernia without obstruction or gangrene Allergies: Allergies Allergy/AdvReac Type Severity Reaction Status Date / Time No Known Allergies Allergy Verified 11/02/24 09:33 Plan I have reviewed the history and physical and performed a pertinent physical examination on my patient. No changes have occurred unless specified. Time Spent With Patient Time: Total time managing care of this patient today ____ minutes.
--- NOTE | 2024-11-10 09:15 | W.PM.OPN ---
Operative Note Operative Note Date of Service: 11/10/24 Narrative: Preop diagnosis: Umbilical hernia, reducible Postop diagnosis: The same Procedure: Repair of umbilical hernia with Phasix umbilical mesh Surgeon: Surya Azul MD sales assistants and salespersons: TAQUERIA Carpenter The patient is a 33-year-old male with a reducible mass on the umbilicus consistent with an umbilical hernia. In view of symptoms he wanted to proceed with repair. He understood the technique of repair with mesh. He was aware of the risks, benefits, and alternatives. He was brought to the operating room. He was placed supine under general anesthesia via laryngeal mask airway. The abdomen was prepped and draped in usual sterile fashion. A surgical time-out was done. The patient received cefazolin 2 g IV preoperatively I infiltrated the planned line of incision with lidocaine 1%. I made a transverse curvilinear infraumbilical incision with with a blade 15. This carried down through the full-thickness of the skin subcutaneous fat with electrocautery. The proceeded to dissect the umbilical skin as a flap to separate this from the subcutaneous layer and the hernia contents. The hernia sac was visualized. I sharply dissected this down to the fascia with Metzenbaum scissors. I continued to dissect adhesions tethering the back to the fascial edges with Metzenbaum scissors until was able to completely reduce this sac through the defect. The defect measured about 1 cm in diameter. The underside of the fascia around the defect was clear of adhesions. I used a small-sized Phasix umbilical mesh and positioned with under the fascia. This was flattened. Hemostasis was confirmed. I secured the Prolene straps of the mesh to the fascia on both sides with Prolene 2 sutures. I trimmed the Prolene straps flush on the fascial level. I closed the fascial defect with the Maxon 1 [id number] stitch I irrigated and reapposed the subcutaneous layer with interrupted Polysorb 3-0 sutures. The skin incision was closed with a running Polysorb 4-0 stitch The area was infiltrated with Marcaine 0.5% for postop analgesia. Dressings were applied and the procedure was completed The patient tolerated the procedure well. There were no immediate complications. Initial and final counts of sponges and instruments were correct. Estimated blood loss was less than 5 cc The patient was extubated without difficulty and transferred to the recovery room with stable vital signs.
== END 2024-11-10 10:59 | disposition home or self-care (01) ==
PROVIDERS: Anesthesiology; PCP Nurse Practitioner Family; Visit Provider Surgery
PROC: (CPT 49591; principal; 2024-11-10 08:40)
DX: K42.9 Umbilical hernia without obstruction or gangrene (principal); R00.2 Palpitations; K76.9 Liver disease, unspecified; F41.9 Anxiety disorder, unspecified; F19.21 Other psychoactive substance dependence, in remission; R82.5 Elevated urine levels of drugs, medicaments and biological substances; F12.90 Cannabis use, unspecified, uncomplicated; F90.9 Attention-deficit hyperactivity disorder, unspecified type; F17.228 Nicotine dependence, chewing tobacco, with other nicotine-induced disorders
CPT/HCPCS: 49591; 80307; C1781; J0690; J1100; J1885; J2003; J2250; J2405; J2704; J2795; J3010

== ENCOUNTER → 2024-11-10 06:13 | Outpatient (BNV) | payer BC, SELFPAY | PROVIDERS: PCP Nurse Practitioner Family; Visit Provider Surgery | DX: K42.9 Umbilical hernia without obstruction or gangrene (principal) | CPT/HCPCS: 49591 ==

== ENCOUNTER 2024-11-23 09:57 | Outpatient (AMB) | payer BC, SELFPAY ==
--- NOTE | 2024-11-23 10:02 | A.OFFVIS_ITS ---
Vital Signs 11/23/24 10:09 11/23/24 10:10 Height 5 ft 4 in Weight 154 lb BMI 26.4 BP 132/70 Blood Pressure Location Lt brachial Position Sitting Intake Visit Reasons: s/p umbilical hernia w/mesh Intake Note: Pt states, I'm here for my post op check. 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 Had some pain with the 1st few days but this has resolved. States he did not need to take any of the pain medications, he did not want to because he has a history of substance use. He did note he had difficulty urinating the for a few days after the operation but this is also resolved He denies any fevers or chills. His appetite has been appropriate, bowel function appropriate. He states that he did notice some green over the incision site, his partner applied some triple antibiotic ointment which resolved the green color. He denies any other discharge or bleeding before after noticing the green. He is excited for a job interview this afternoon [facility] Medical History (Updated 11/02/24 @ 09:50 by Surya Azul MD) Umbilical hernia without obstruction or gangrene Palpitation Liver disease Anxiety and depression ADHD History of drug dependence/abuse Surgical History (Updated 11/23/24 @ 10:25 by Arnaud Alex PA-C) History of umbilical hernia repair No pertinent past surgical history Family History Mother Mental health disorder High blood pressure High cholesterol Alcoholism Father Substance use disorder High blood pressure High cholesterol Alcoholism Social History Housing: Other (penitentiary ) Alcohol intake: former Comment: quit 2 years ago Patient Tobacco Use Status: Never used Tobacco Tobacco use type: Smokeless Tobacco (nicotine patches) e-Cigarette/Vaping Use: Currently Using (mariarjuna) Second Hand Smoke Exposure: Yes Substance Use Type: Marijuana service: No Current occupational status: employed 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 Resolving ecchymoses noted inferior to the incision site. Nontender no palpable fluid collection. No green color appreciated Inspection: No distended Palpation (GI): Soft to palpation, nontender and no guarding Neuro General: patient oriented x3 Assessment & Plan Assessment & Plan (1) S/P umbilical hernia repair, follow-up exam: Code(s): Z09 - Encounter for follow-up examination after completed treatment for conditions other than malignant neoplasm Category: Surgical Plan 33-year-old male s/p umbilical hernia repair with mesh on 11/10/2024 returning to the office for routine 2 week follow up. Patient doing well overall, not having any pain. Appetite and bowel function at baseline Patient did have some green area overlying the incision for which he put triple antibiotic ointment on this is resolved. I was unable to appreciate this on exam, further on exam the abdomen is soft and benign there is nontender, the incision appears to be healing well there was a small scab overlying the left side of the incision. I do not have any concern for infection at this point. We will continue with activity restrictions no heavy lifting greater than 15-20 lb. Patient will return in 2 weeks for one-month follow-up, can return sooner with any concerns prior Coding Level of Care Code Est Pt Level 3 (29120) Diagnoses S/P umbilical hernia repair, follow-up exam Z09
[2024-11-23 10:09] VITALS: BP 132/70
[2024-11-23 10:10] VITALS: BMI 26.4
== END 2024-11-23 10:21 | disposition home or self-care (01) ==
LOC: HO.HGS 09:58
PROVIDERS: PCP Nurse Practitioner Family
DX: Z09 Encounter for follow-up examination after completed treatment for conditions other than malignant neoplasm (principal)
CPT/HCPCS: 99213